=== PATIENT | female | born 1995 | race Caucasian/White ===

== ENCOUNTER 2024-11-18 20:26 | Emergency (ER) | payer OTHER ==
[~2024-11-18] VITALS: Ht 170.2 cm; Wt 122.3 kg
[2024-11-18 20:38] VITALS: BP 92/55; PULSE 88; RESP 18; TEMP 98; O2SAT 100
== END 2024-11-18 21:20 | disposition left against medical advice (07) ==
LOC: EMS 20:26
DX: R11.2 Nausea with vomiting, unspecified (principal); R19.7 Diarrhea, unspecified; Z53.21 Procedure and treatment not carried out due to patient leaving prior to being seen by health care provider